=== PATIENT | female | born 1975 ===

== ENCOUNTER → 2018-06-28 21:18 | Outpatient (REF) | payer OTHER, SELFPAY ==
[2018-06-28 22:28] LABS: Add Manual Diff / Slide Review NO; Alanine Aminotransferase 20 IU/L (9-52); Albumin 4.6 g/dL (3.5-5.0); Albumin Globulin Ratio 1.5 (1.0-2.8); Alkaline Phosphatase 56 U/L (38-126); Aspartate Aminotransferase 23 IU/L (14-36); Basophils Absolute Auto 0 /uL (0-100); Basophils Percent Auto 0.6 % (0-2); Bilirubin Total 0.3 mg/dL (0.2-1.3); Blood Urea Nitrogen 14 mg/dL (7-17); Calcium 9.5 mg/dL (8.4-10.2); Carbon Dioxide 25 mmol/L (22-32); Chloride 100 mmol/L (98-107); Eosinophils Absolute Auto 300 /uL (0-450); Eosinophils Percent Auto 6.4 % (2-4); Estimated Glomerular Filt Rate > 60.0 mL/min (>60); Glucose 70 mg/dL (70-100); HEMOLYSIS < 15 (0-50); Hematocrit 38.3 % (36-46); Lymphocytes Absolute Auto 1600 /uL (1100-4500); Lymphocytes Percent Auto 39.4 % (25-40); Mean Corpuscular HGB Conc 33.9 % (30-36); Mean Corpuscular Hemoglobin 32.7 PG (26-34); Mean Corpuscular Volume 96.5 fL (80-100); Monocytes Absolute Auto 300 /uL (0-900); Neutrophils Absolute Auto 2000 /uL (1500-7000); Neutrophils Percent Auto 46.6 % (50-75); Platelet Count 211 X10^3/uL (150-400); Potassium 4.2 mmol/L (3.4-5.1); Red Blood Cell Count 3.97 X10^6/uL (4.0-5.2); Red Cell Distribution Width 13.1 % (11.6-14.8); Sodium 138 mmol/L (137-145); Total Protein 7.6 g/dL (6.3-8.2); White Blood Cell Count 4.2 X10^3/uL (4.5-11.0)
[2018-06-29 01:01] LABS: Thyroid Stimulating Hormone 1.38 uIU/mL (0.47-4.68)
[2018-06-29 05:35] LABS: Free T4, Direct Thyroxine 1.28 ng/dL (0.78-2.19)
[2018-06-30 17:37] LABS: Anti Thyroglobulin Antibody 17 IU/mL (< 2); Thyroid Peroxidase Antibodies 33 IU/mL (< 9)
== END ==
LOC: LAB 21:18
PROVIDERS: Visit Provider Family Medicine
DX: E06.3 Autoimmune thyroiditis (principal)
CPT/HCPCS: 36415; 80053; 84439; 84443; 85025; 86376; 86800